=== PATIENT | female | born 1930 | race Caucasian/White ===

== ENCOUNTER 2017-08-12 08:32 | Inpatient (IN) | payer OTHER ==
--- NOTE | 2017-08-12 09:00 | PDOC ---
Attending Attestation - Resident Resident Name: Ernesto Massey - ED Attending Attestation I have performed the following: I have examined & evaluated the patient, The case was reviewed & discussed with the resident, I agree w/resident's findings & plan, Exceptions are as noted - HPI HPI: 08/12/17 08:58 86y F htn, hl, afib (on ) s/p fall at custodial, pt was going to the restroom when she fell. She does not remember the cirucumstances of the fall - but felt like her legs gave out. denies any cp, sob, palpitations, dizziness. Pt denies any head injury, loc, n/v viosion changes,. Pt dinbes any fever/chills , cough, dysuria, diarrhea, melena. Pt denies any numbness/tingling/weakness. ros may be limited due to dementia (no mention of dementia though) GENERAL: The patient is awake, alert, and oriented x 1, Nontoxic - in no acute distress. HEAD: Normocephalic, atraumatic. EYES: extraocular movements intact, sclera anicteric, conjunctiva clear. ENT: Normal voice, Moist mucous membranes. NECK: Normal range of motion, supple LUNGS: Breath sounds equal, clear to auscultation bilaterally. No wheezes, no rhonchi, no rales. HEART: Regular rate and rhythm, normal S1 and S2 without murmur, rub or gallop. ABDOMEN: Soft, nontender, normoactive bowel sounds. No guarding, no rebound. No CVA tenderness NEUROLOGICAL: No facial assymetry, Normal speech, SKIN: Warm, Dry, normal turgor, Back: No midline tenderness to the cervical, thoracic or lumbar spine Musculoskelatal: FROM of b/l shoulders, elbows, wrist. FROM of , knees, ankles - No signs of ecchymosis, erythema, or crepitus noted on palpation extremities, chest wall, clavicals, ribs, back. +pain to ROM of R hip but no shortening/ rotation, foot plantar flexion/extension intact, sensation in lower extremity intact. We'll obtain x-rays to rule out hip fracture Due to concern history we'll obtain blood work, EKG, UA to screen for anemia, metabolic derangements, occult infection for possible cause of the fall - Physicial Exam PE: 08/12/17 11:04 see above - Medical Decision Making 08/12/17 11:03 The patient's pelvic x-ray is consistent with a superior and inferior pubic rami fracture The patient will be admitted with orthopedic consult The patient declines any pain medication 08/12/17 11:[address] Grijalva requests CT Heart Score/ECG Review - ECG Impressions Comment:: 08/12/17 09:50 Twelve-lead EKG was performed and reviewed by me. Irregularly irregular Rate of 82 PVCs present
--- NOTE | 2017-08-12 09:02 | PDOC ---
History of Present Illness - General Chief Complaint: Injury Stated Complaint: FALL Time Seen by Provider: 08/12/17 08:36 - History of Present Illness Initial Comments: 08/12/17 09:05 The patient is an 86 year old female with a history of HTN, HLD, Afib on digoxen who presents for evaluation following a fall at her NH. The patient reports that she was walking to the bathroom when her legs "gave out on her" resulting in a fall. The patient denies any LOC, lightheadedness or head trauma with the event, but does endorse some mild right hip pain with movement, but notes no pain at rest. She denies any other injuries as well as fevers, chills, headache, nausea, vomiting, SOB, chest pain, abdominal pain, or changes with urination or bowel movements. Past History - Past Medical History Allergies/Adverse Reactions: Allergies Allergy/AdvReac Type Severity Reaction Status Date / Time No Known Allergies Allergy Verified 08/12/17 08:49 Home Medications: Ambulatory Orders Dabigatran Etexilate Mesylate [Pradaxa -] 75 mg PO BID 08/12/17 Digoxin [Lanoxin -] 0.25 mg PO DAILY 08/12/17 Escitalopram Oxalate [Lexapro -] 20 mg PO DAILY 08/12/17 Furosemide 20 mg PO ASDIR 08/12/17 Lactose-Reduced Food [Ensure Liquid] 237 ml PO DAILY 08/12/17 Levothyroxine Sodium [Levo-T] 125 mcg PO DAILY 08/12/17 Raloxifene HCl 60 mg PO DAILY 08/12/17 acetaZOLAMIDE [Diamox Sequels -] 500 mg PO DAILY 08/12/17 Cardiac Disorders: Yes (a fib) COPD: No HTN: Yes Psychiatric Problems: Yes (anxiety) Seizures: Yes (hypothyroid) Other medical history: glaucoma left eye. osteoporosis - Suicide/Smoking/Psychosocial Hx Smoking History: Unknown if ever smoked Have you smoked in the past 12 months: No Information on smoking cessation initiated: No Hx Alcohol Use: No Drug/Substance Use Hx: No Substance Use Type: None Review of Systems - Review of Systems Comments:: 08/12/17 09:08 Constitutional: No fevers, chills, fatigue, malaise HEENT: No Rhinorrhea, nasal congestion, visual changes Cardiovascular: No chest pain, syncope, palpitations, lightheadedness Respiratory: No Cough, SOB, Hemoptysis, Gastrointestinal: No Abdominal pain, Nausea, Vomiting, Constipation, Diarrhea, Melena Genitourinary: No Dysuria, Frequency, Urgency, Hesitancy, Hematuria, Flank pain Musculoskeletal: Right hip pain with movement. No Myalgia, arthralgia Skin: No rashes, itching, bruising, pallor Neurologic: No Headache, Dizziness, Numbness, Weakness, or Tingling Psychiatric: No Hallucinations. No SI or HI *Physical Exam - Vital Signs Last Vital Signs Temp Pulse Resp BP Pulse Ox 97.9 F 85 18 159/90 100 08/12/17 08:35 08/12/17 08:35 08/12/17 08:35 08/12/17 08:35 08/12/17 08:35 - Physical Exam Comments: 08/12/17 09:09 General Appearance: Nourished. No Apparent Distress HEENT: EOMI, SANDRA. No Pharyngeal Erythema, Tonsillar Exudate, Tonsillar Erythema Neck: No Cervical Lymphadenopathy Respiratory/Chest: Lungs Clear, Normal Breath Sounds. No Crackles, Rales, Rhonchi, Wheezing Cardiovascular: Regular Rhythm, Regular Rate. No Murmur, Gallops, Rubs Gastrointestinal/Abdominal: Normal Bowel Sounds, Soft. No Guarding, Rebound, Tenderness Musculoskeletal: No CVA Tenderness Extremity: Mild tenderness to palpation of the right hip and mild pain in the right hip with active motion. Sensation to light touch and temperature intact in the distal extremities. 2+ dp pulses bilaterally. Normal Capillary Refill Integumentary: Normal Color, Dry, Warm Neurologic: power marketer II-XII NML intact, Oriented x1, Alert, Normal Mood/Affect, Normal Response, Motor Strength 5/5. Normal Finger to Nose and Heel to [place] Heart Score/ECG Review #1 ECG reviewed & interpreted by me at: 11:48 (AFib with biphasic twaves in v4-v5) General ECG Interpretation: Normal Rate, Normal Intervals, No acute ischemic changes Compared to previous ECG there are: Previous ECG unavail ED Treatment Course - LABORATORY CBC & Chemistry Diagram: 08/12/17 09:18 08/12/17 09:18 - RADIOLOGY Radiology Studies Ordered: Category Date Time Status HEAD CT WITHOUT CONTRAST [CT] Stat CT Scan 08/12/17 08:50 Ordered HIP & PELVIS-RIGHT [RAD] Stat Radiology 08/12/17 08:50 Ordered Medical Decision Making - Medical Decision Making 08/12/17 09:12 The patient is an 86 year old female with a history of HTN, HLD, Afib on digoxen who presents for evaluation following a fall at her NH. Differential includes but is not limited to: Fracture, dislocation, contusion, infectious, metabolic derangement. Given the patient's history of a fall, we will obtain plain films of the patient's hip as well as a head CT, cbc, cmp, dig level, ekg to evaluate further. We will continue to monitor and reassess. 08/12/17 10:54 CBC demonstrates a wbc to 12. cmp, dig, are unremarkable. Head CT is negative for acute pathology as read by our radiologist. Plain films of the patient's hip demonstrate right inferior and superior pubic rami fractures as read by our radiologist. The patient will require admission and orthopedic consultation for further management of her condition. 08/12/17 11:23 We discussed the case with Dr. Grijalva with Orthopedic Surgery who has been made aware of the patient and will evaluate. 08/12/17 11:36 We discussed the case with the hospitalist team who accepted the patient for admission. *DC/Admit/Observation/Transfer Diagnosis at time of Disposition: Pubic ramus fracture Qualifiers: Encounter type: initial encounter Fracture type: closed Laterality: right Qualified Code(s): S32.591A - Other specified fracture of right pubis, initial encounter for closed fracture - Discharge Dispostion Condition at time of disposition: Stable Admit: Yes - Referrals - Patient Instructions - Post Discharge Activity
[2017-08-12 09:27] LABS: BASO % 0.6 % (0-2.0); EOS % 0.1 % (0-4.5); HEMATOCRIT 40.1 % (32.4-45.2); LYMPH % 3.3 % (8-40); MCH 28.4 pg (25.7-33.7); MCHC 32.5 g/dl (32.0-36.0); MEAN CELL VOLUME 87.5 fl (80-96); MEAN PLT VOLUME 8.5 fl (7.5-11.1); PLATELET COUNT 158 K/MM3 (134-434); RBC 4.58 M/mm3 (3.60-5.2); RDW 15.6 % (11.6-15.6)
[2017-08-12 09:54] LABS: URINE APPEARANCE CLEAR; URINE BILIRUBIN NEGATIVE (NEGATIVE); URINE BLOOD NEGATIVE (NEGATIVE); URINE COLOR YELLOW; URINE GLUCOSE (UA) NEGATIVE (NEGATIVE); URINE KETONE NEGATIVE (NEGATIVE); URINE LEUK ESTERASE NEGATIVE (NEGATIVE); URINE NITRITE NEGATIVE (NEGATIVE); URINE PROTEIN NEGATIVE (NEGATIVE); URINE UROBILINOGEN NEGATIVE mg/dL (0.2-1.0)
[2017-08-12 09:58] LABS: ALBUMIN 3.5 g/dl (3.4-5.0); ALK PHOS 83 U/L (45-117); ANION GAP 7 (8-16); BILIRUBIN,TOTAL 0.5 mg/dL (0.2-1.0); BLOOD UREA NITROGEN 18 mg/dL (7-18); CALCIUM 8.3 mg/dL (8.5-10.1); CHLORIDE 110 mmol/L (98-107); CO2 23 mmol/L (21-32); CREATININE 0.7 mg/dL (0.55-1.02); GLUCOSE,RANDOM 116 mg/dL (74-106); SGOT/AST 19 U/L (15-37); SGPT/ALT 14 U/L (12-78); SODIUM 140 mmol/L (136-145); TOT PROT 6.9 g/dl (6.4-8.2)
--- NOTE | 2017-08-12 11:49 | PN ---
Progress Note (short form) - Note Progress Note: Pt seen. Consult dictated. CT scan pending.
[2017-08-12] MEDS ORDERED: SODIUM CHLORIDE 1,000 ML IV SCH (12:00)
[2017-08-12] MEDS ORDERED: BACITRACIN 0.9 GM PACKET ONE (12:34)
--- NOTE | 2017-08-12 12:36 | HP ---
CHIEF COMPLAINT: fall PCP: HISTORY OF PRESENT ILLNESS: 86 year old female with a past medical history of HTN, HLD, Afib, hypothyroidism , depression presents to the hospital s/p fall 2 days ago at [facility] adult home. Patient states that she was doing daily housework when she lost her footing and fell. Patient denies loss of consciousness, heart palpitations, chest pain, headache, seizure hx, nausea, vomiting, and incontinence. She states that she hit the right side of her body, including her R shoulder and R hip. She states that after she fell, she was on the floor for 10 minutes before getting up and walking around on her own. She reports increased pain this morning and thus patient was brought to the hospital. She states the pain in her hip is at a 5/10 and patient states that she would like to avoid pain medications if possible. Phone number for cousin ([place] [phone]). ER course was notable for: (1) mild leukocytosis (WBC 12) (2) EKG Afib normal rate (3) Recent Travel: PAST MEDICAL HISTORY: HTN, HLD, hypothyroidism, depression, Afib PAST SURGICAL HISTORY: appendectomy (50 years ago), tonsillectomy, cataract surgery Social History: Smoking: never Alcohol: never Drugs: never Family History: CAD in mother Allergies No Known Allergies Allergy (Verified 08/12/17 08:49) HOME MEDICATIONS: Home Medications Medication Instructions Recorded Dabigatran Etexilate Mesylate 75 mg PO BID 08/12/17 [Pradaxa -] Digoxin [Lanoxin -] 0.25 mg PO DAILY 08/12/17 Escitalopram Oxalate [Lexapro -] 20 mg PO DAILY 08/12/17 Furosemide 20 mg PO ASDIR 08/12/17 Lactose-Reduced Food [Ensure 237 ml PO DAILY 08/12/17 Liquid] Levothyroxine Sodium [Levo-T] 125 mcg PO DAILY 08/12/17 Metoprolol Succinate 25 mg PO DAILY 08/12/17 Raloxifene HCl 60 mg PO DAILY 08/12/17 Ramipril 5 mg PO DAILY 08/12/17 acetaZOLAMIDE [Diamox Sequels -] 500 mg PO DAILY 08/12/17 acetaZOLAMIDE [Diamox Sequels -] 500 mg PO DAILY 08/12/17 REVIEW OF SYSTEMS CONSTITUTIONAL: Absent: fever, chills, diaphoresis, generalized weakness, malaise, loss of appetite, weight change HEENT: Absent: rhinorrhea, nasal congestion, throat pain, throat swelling, difficulty swallowing, mouth swelling, ear pain, eye pain, visual changes CARDIOVASCULAR: Absent: chest pain, syncope, palpitations, irregular heart rate, lightheadedness , peripheral edema RESPIRATORY: Absent: cough, shortness of breath, dyspnea with exertion, orthopnea, wheezing, stridor, hemoptysis GASTROINTESTINAL: Absent: abdominal pain, abdominal distension, nausea, vomiting, diarrhea, constipation, melena, hematochezia GENITOURINARY: Absent: dysuria, frequency, urgency, hesitancy, hematuria, flank pain, genital pain MUSCULOSKELETAL: Absent: myalgia, arthralgia, joint swelling, back pain, neck pain SKIN: Absent: rash, itching, pallor HEMATOLOGIC/IMMUNOLOGIC: Absent: easy bleeding, easy bruising, lymphadenopathy, frequent infections ENDOCRINE: Absent: unexplained weight gain, unexplained weight loss, heat intolerance, cold intolerance NEUROLOGIC: Absent: headache, focal weakness or paresthesias, dizziness, unsteady gait, seizure, mental status changes, bladder or bowel incontinence PSYCHIATRIC: Absent: anxiety, depression, suicidal or homicidal ideation, hallucinations. PHYSICAL EXAMINATION Vital Signs - 24 hr 08/12/17 08/12/17 08:35 11:32 Temperature 97.9 F 97.9 F Pulse Rate 85 Pulse Rate [ 83 Right Radial] Respiratory 18 16 Rate Blood Pressure 159/90 Blood Pressure 144/92 [Left Arm] O2 Sat by Pulse 100 99 Oximetry (%) GENERAL: Awake, alert, and fully oriented, in no acute distress. HEAD: Normal with no signs of trauma. EYES: Pupils equal, round and reactive to light, extraocular movements intact, sclera anicteric, conjunctiva clear. No lid lag. EARS, NOSE, THROAT: Ears normal, nares patent, oropharynx clear without exudates. Moist mucous membranes. NECK: Normal range of motion, supple without lymphadenopathy, JVD, or masses. LUNGS: Breath sounds equal, clear to auscultation bilaterally. No wheezes, and no crackles. No accessory muscle use. HEART: Regular rate and rhythm, normal S1 and S2 without murmur, rub or gallop. ABDOMEN: Soft, nontender, not distended, normoactive bowel sounds, no guarding, no rebound, no masses. No hepatomegaly or splenomegaly. MUSCULOSKELETAL: Normal range of motion at all joints. No bony deformities or tenderness. No CVA tenderness. UPPER EXTREMITIES: 2+ pulses, warm, well-perfused. No cyanosis. No clubbing. No peripheral edema. LOWER EXTREMITIES: 2+ pulses, warm, well-perfused. No calf tenderness. No peripheral edema. NEUROLOGICAL: Cranial nerves II-XII intact. Normal speech. Normal gait. PSYCHIATRIC: Cooperative. Good eye contact. Appropriate mood and affect. SKIN: Warm, dry, normal turgor, no rashes or lesions noted, normal capillary refill. Laboratory Results - last 24 hr 08/12/17 08/12/17 08/12/17 09:18 09:18 09:18 WBC 12.0 H RBC 4.58 Hgb 13.0 Hct 40.1 MCV 87.5 MCH 28.4 MCHC 32.5 RDW 15.6 Plt Count 158 MPV 8.5 Neutrophils % 88.0 H Lymphocytes % 3.3 L Monocytes % 8.0 Eosinophils % 0.1 Basophils % 0.6 Sodium 140 Potassium 4.0 Chloride 110 H Carbon Dioxide 23 Anion Gap 7 L BUN 18 Creatinine 0.7 Creat Clearance w eGFR > 60 Random Glucose 116 H Calcium 8.3 L Total Bilirubin 0.5 AST 19 ALT 14 Alkaline Phosphatase 83 Creatine Kinase 61 Troponin I < 0.02 Total Protein 6.9 Albumin 3.5 Urine Color Urine Appearance Urine pH Ur Specific [place] Urine Protein Urine Glucose (UA) Urine Ketones Urine Blood Urine Nitrite Urine Bilirubin Urine Urobilinogen Ur Leukocyte Esterase Digoxin 1.2937 08/12/17 08/12/17 09:33 10:12 WBC RBC Hgb Hct MCV MCH MCHC RDW Plt Count MPV Neutrophils % Lymphocytes % Monocytes % Eosinophils % Basophils % Sodium Potassium Chloride Carbon Dioxide Anion Gap BUN Creatinine Creat Clearance w eGFR Random Glucose Calcium Total Bilirubin AST ALT Alkaline Phosphatase Creatine Kinase Cancelled Troponin I Cancelled Total Protein Albumin Urine Color Yellow Urine Appearance Clear Urine pH 7.0 Ur Specific [place] 1.015 Urine Protein Negative Urine Glucose (UA) Negative Urine Ketones Negative Urine Blood Negative Urine Nitrite Negative Urine Bilirubin Negative Urine Urobilinogen Negative Ur Leukocyte Esterase Negative Digoxin Ambulatory Orders Dabigatran Etexilate Mesylate [Pradaxa -] 75 mg PO BID 08/12/17 Digoxin [Lanoxin -] 0.25 mg PO DAILY 08/12/17 Escitalopram Oxalate [Lexapro -] 20 mg PO DAILY 08/12/17 Furosemide 20 mg PO ASDIR 08/12/17 Lactose-Reduced Food [Ensure Liquid] 237 ml PO DAILY 08/12/17 Levothyroxine Sodium [Levo-T] 125 mcg PO DAILY 08/12/17 Metoprolol Succinate 25 mg PO DAILY 08/12/17 Raloxifene HCl 60 mg PO DAILY 08/12/17 Ramipril 5 mg PO DAILY 08/12/17 acetaZOLAMIDE [Diamox Sequels -] 500 mg PO DAILY 08/12/17 acetaZOLAMIDE [Diamox Sequels -] 500 mg PO DAILY 08/12/17 ASSESSMENT/PLAN: 86 year old female with a past medical history of HTN, HLD, Afib, hypothyroidism , depression admitted to the hospital s/p fall and acute R sided pubic ramus fracture #Pubic Ramus Fracture: pain is controlled -f/u pelvic CT read -unlikely surgery will be done -Dr. Grijalva consult appreciated -pain control, tylenol PRN #Hypertension: control htn -continue home ramipril 5mg PO daily -continue metoprolol 25mg PO QD -continue home lasix 20mg PO #Hypothyroidism: not acute -continue levothyroxine 125mcg PO QD #Atrial Fibrillation: rate controlled -CBC to trend H&H -Restart pradaxa -continue digoxin 0.25 QD #Depression: stable -continue raloxifine #FEN -Sodium controlled diet -replete lytes in AM -1 bag of NS @ 83cc/hr #Prophylaxis SCDs for now, will start pradaxa if H&H stable #Disposition -Admit to med-surg Visit type - Emergency Visit Emergency Visit: Yes ED Registration Date: 08/12/17 Care time: The patient presented to the Emergency Department on the above date and was hospitalized for further evaluation of their emergent condition. - New Patient This patient is new to me today: Yes Date on this admission: 08/12/17 - Critical Care Critical Care patient: No Hospitalist Screening - Colonoscopy Questionnaire Colonoscopy Questionnaire: Colonoscopy Questionnaire - Patient: 50 - 75 years old and never had a screening colonoscopy: Unknown History of colon or rectal polyps, or CA: Unknown History of IBD, Crohn's disease or UC: Unknown History of abdominal radiation therapy as a child: Unknown - Relative: 1 with colon or rectal CA, or polyps at age 60 or younger: Unknown Colon or rectal CA diagnosed at age 45 or younger: Unknown Multiple relatives with colon or rectal CA: Unknown - Outcome: Screening Result: Negative Screen
--- NOTE | 2017-08-12 12:54 | HP ---
CHIEF COMPLAINT: hip pain HISTORY OF PRESENT ILLNESS: The pt is a 86 year old female with a PMH of hypertension, hypothyroidism, A.Fib., HLD, Afib who presents for evaluation following a fall at [facility]( adult home). The patient reports that she was doing errands 2 days ago and she fell on the ground. She was able to get up after 10 minutes. The patient denies any LOC, lightheadedness or head trauma, LOC, seizure, urination, but does endorse some mild right hip pain with movement, but notes no pain at rest. She denies fevers, chills, headache, nausea, vomiting, SOB, chest pain, abdominal pain, or changes with urination or bowel movements. ER course was notable for: (1)x ray of left hip (2)CBC, leukocytosis (3)Orthopedic surgery PAST MEDICAL HISTORY: as above PAST SURGICAL HISTORY: cataract surgery, appendectomy, tonsillectomy Social History: Smoking:no Alcohol:no Drugs: no Family History: DM in mothers side, no cancer history Allergies No Known Allergies Allergy (Verified 08/12/17 08:49) HOME MEDICATIONS: Home Medications Medication Instructions Recorded Dabigatran Etexilate Mesylate 75 mg PO BID 08/12/17 [Pradaxa -] Digoxin [Lanoxin -] 0.25 mg PO DAILY 08/12/17 Escitalopram Oxalate [Lexapro -] 20 mg PO DAILY 08/12/17 Furosemide 20 mg PO ASDIR 08/12/17 Lactose-Reduced Food [Ensure 237 ml PO DAILY 08/12/17 Liquid] Levothyroxine Sodium [Levo-T] 125 mcg PO DAILY 08/12/17 Metoprolol Succinate 25 mg PO DAILY 08/12/17 Raloxifene HCl 60 mg PO DAILY 08/12/17 Ramipril 5 mg PO DAILY 08/12/17 acetaZOLAMIDE [Diamox Sequels -] 500 mg PO DAILY 08/12/17 acetaZOLAMIDE [Diamox Sequels -] 500 mg PO DAILY 08/12/17 REVIEW OF SYSTEMS CONSTITUTIONAL: Absent: fever, chills, diaphoresis, generalized weakness, malaise, loss of appetite HEENT: Absent: rhinorrhea, nasal congestion, throat pain, throat swelling CARDIOVASCULAR: Absent: chest pain, syncope, palpitations, irregular heart rate, lightheadedness , peripheral edema RESPIRATORY: Absent: cough, shortness of breath, dyspnea with exertion, orthopnea, wheezing, GASTROINTESTINAL: Absent: abdominal pain, abdominal distension, nausea, vomiting, diarrhea, constipation, GENITOURINARY: Absent: dysuria, frequency, urgency, hesitancy, hematuria, flank pain, genital pain MUSCULOSKELETAL: right hip pain Absent: joint swelling, back pain, neck pain SKIN: Absent: rash, itching, pallor ENDOCRINE: Absent: unexplained weight gain, unexplained weight loss, heat intolerance NEUROLOGIC: Absent: headache, focal weakness or paresthesias, dizziness, unsteady gait, seizure, PSYCHIATRIC: Absent: anxiety, depression PHYSICAL EXAMINATION Vital Signs - 24 hr 08/12/17 08/12/17 08:35 11:32 Temperature 97.9 F 97.9 F Pulse Rate 85 Pulse Rate [ 83 Right Radial] Respiratory 18 16 Rate Blood Pressure 159/90 Blood Pressure 144/92 [Left Arm] O2 Sat by Pulse 100 99 Oximetry (%) GENERAL: Awake, alert, and fully oriented, in no acute distress, lying in bed. HEAD: Normal with no signs of trauma. EYES: Pupils equal, round and reactive to light, extraocular movements intact, sclera anicteric, conjunctiva clear. EARS, NOSE, THROAT: oropharynx clear without exudates. Moist mucous membranes. NECK: Normal range of motion, supple without lymphadenopathy, JVD, or masses. LUNGS: Breath sounds equal, clear to auscultation bilaterally. No wheezes, and no crackles. No accessory muscle use. HEART: Regular rate and rhythm, normal S1 and S2 without murmur, rub or gallop. ABDOMEN: Soft, nontender, not distended, normoactive bowel sounds, no guarding, no rebound, no masses. MUSCULOSKELETAL: limited hip flexion in right hip due to pain, tenderness over right hip, normal ROM in all other joints. No bone deformities. UPPER EXTREMITIES: 2+ pulses, no clubbing. No peripheral edema. LOWER EXTREMITIES: 2+ pulses, no calf tenderness. No peripheral edema. NEUROLOGICAL: Normal speech, no facial asymmetry, motor 5/5, sensation decreased in right lower leg. PSYCHIATRIC: Cooperative. Good eye contact. Appropriate mood and affect. SKIN: Warm, dry, normal turgor, no rashes or lesions noted. Laboratory Results - last 24 hr 08/12/17 08/12/17 08/12/17 09:18 09:18 09:18 WBC 12.0 H RBC 4.58 Hgb 13.0 Hct 40.1 MCV 87.5 MCH 28.4 MCHC 32.5 RDW 15.6 Plt Count 158 MPV 8.5 Neutrophils % 88.0 H Lymphocytes % 3.3 L Monocytes % 8.0 Eosinophils % 0.1 Basophils % 0.6 Sodium 140 Potassium 4.0 Chloride 110 H Carbon Dioxide 23 Anion Gap 7 L BUN 18 Creatinine 0.7 Creat Clearance w eGFR > 60 Random Glucose 116 H Calcium 8.3 L Total Bilirubin 0.5 AST 19 ALT 14 Alkaline Phosphatase 83 Creatine Kinase 61 Troponin I < 0.02 Total Protein 6.9 Albumin 3.5 Urine Color Urine Appearance Urine pH Ur Specific [place] Urine Protein Urine Glucose (UA) Urine Ketones Urine Blood Urine Nitrite Urine Bilirubin Urine Urobilinogen Ur Leukocyte Esterase Digoxin 1.2937 08/12/17 08/12/17 09:33 10:12 WBC RBC Hgb Hct MCV MCH MCHC RDW Plt Count MPV Neutrophils % Lymphocytes % Monocytes % Eosinophils % Basophils % Sodium Potassium Chloride Carbon Dioxide Anion Gap BUN Creatinine Creat Clearance w eGFR Random Glucose Calcium Total Bilirubin AST ALT Alkaline Phosphatase Creatine Kinase Cancelled Troponin I Cancelled Total Protein Albumin Urine Color Yellow Urine Appearance Clear Urine pH 7.0 Ur Specific [place] 1.015 Urine Protein Negative Urine Glucose (UA) Negative Urine Ketones Negative Urine Blood Negative Urine Nitrite Negative Urine Bilirubin Negative Urine Urobilinogen Negative Ur Leukocyte Esterase Negative Digoxin ASSESSMENT/PLAN: The pt is a 86 year old female with a PMH of hypertension, hypothyroidism, A.Fib., HLD, Afib who presents for evaluation following a fall at [facility], she is aditted s/p fall. S/p fall: -x ray reviewed- pubic ramus fracture, followed by CT hip -Orthopedic surgery consulted, f/u recommendations: toe weight bearing, no surgery indicated -fall risk precautions -pain control, Tylenol Hypertension: -cont home meds: Metoprolol, Ramipril, lasix Hypothyroidism: -cont Synthroid, ordered TSH A.Fib: -cont pradaxa DVT PPX: -cont AC -scds F/E/N: NS/no changes/sodium controlled Dispo: med surg Full note to follow. Problem List - Problem (1) Hypertension Code(s): I10 - ESSENTIAL (PRIMARY) HYPERTENSION (2) Hypertension Code(s): I10 - ESSENTIAL (PRIMARY) HYPERTENSION (3) Pubic ramus fracture Code(s): S32.599A - OTH FRACTURE OF UNSP PUBIS, INIT ENCNTR FOR CLOSED FRACTURE Qualifiers: Encounter type: initial encounter Fracture type: closed Laterality: right Qualified Code(s): S32.591A - Other specified fracture of right pubis, initial encounter for closed fracture Visit type - Emergency Visit Emergency Visit: Yes ED Registration Date: 08/12/17 Care time: The patient presented to the Emergency Department on the above date and was hospitalized for further evaluation of their emergent condition. - New Patient This patient is new to me today: Yes Date on this admission: 08/12/17 - Critical Care Critical Care patient: No
[2017-08-12 12:59] VITALS: BMI 17.9
[2017-08-12] MEDS ORDERED: LACTOSE REDUCED FOOD PO SCH (13:15)
--- NOTE | 2017-08-12 14:19 | EKG ---
Test Reason : Blood Pressure : / mmHG Vent. Rate : 082 BPM Atrial Rate : 087 BPM P-R Int : 000 ms QRS Dur : 076 ms QT Int : 356 ms P-R-T Axes : 000 081 -80 degrees QTc Int : 415 ms POOR DATA QUALITY, INTERPRETATION MAY BE ADVERSELY AFFECTED ATRIAL FIBRILLATION WITH A COMPETING JUNCTIONAL PACEMAKER WITH PREMATURE VENTRICULAR OR ABERRANTLY CONDUCTED COMPLEXES MODERATE VOLTAGE CRITERIA FOR LVH, MAY BE NORMAL VARIANT CANNOT RULE OUT SEPTAL INFARCT , AGE UNDETERMINED ABNORMAL ECG NO PREVIOUS ECGS AVAILABLE Confirmed by MD DL, CHANDAN ([id number]) on 08/12/2017 2:19:14 PM Referred By: Confirmed By:CHANDAN LIZAMA MD
[2017-08-12] MEDS ORDERED: PT OWN MED DRAWER 7, Y5N ONE ×2 (14:39→20:45)
[2017-08-12] MEDS: RAMIPRIL 5 MG CAPSULE (FP) PO SCH (14:43)
[2017-08-12] MEDS: DIGOXIN 0.25 MG TABLET (FP) PO SCH (14:44)
[2017-08-12] MEDS: LEVOTHYROXINE NA 125 MCG TABLET (FP) PO SCH (14:45)
[2017-08-12] MEDS: ESCITALOPRAM OXALATE 20 MG TABLET (FP) PO SCH (14:45)
[2017-08-12] MEDS: DABIGATRAN ETEXILATE MESYLATE 75 MG CAPSULE PO SCH ×2 (14:45→21:18)
--- NOTE | 2017-08-12 14:53 | CONS ---
DATE OF CONSULTATION: 08/12/2017 CHIEF COMPLAINT: Right hip pain. HISTORY OF PRESENT ILLNESS: This is a pleasant 86-year-old female who is a resident of a snf who was coming to the restroom and suffered a fall. She states that her body started to spin, and she fell down, and her legs gave out. She denies any head injury, loss of consciousness. She notes pain only in the hip area when she moves. She denies any pain sitting still. Pain is felt in the right hip area. There is no pain elsewhere. PAST MEDICAL HISTORY: Includes hypertension, hyperlipidemia, atrial fibrillation, likely history of dementia. MEDICATIONS: Reviewed and in the chart. REVIEW OF SYMPTOMS: No fevers, chills, nausea, vomiting, night sweats. PHYSICAL EXAMINATION: General: This is an elderly female in no acute distress. She is alert and answering questions appropriately. She is somewhat disoriented, though. Lungs: She has regular respirations. Extremities: Examination of the pelvis and right lower extremity demonstrates no skin lesions. There is no swelling. There is no gross deformity. There is tenderness with both AP and lateral compression of the pelvis. There is pain with logroll of the femur. The knee is nontender. The ankle is nontender. The calves are soft and nontender. Distally, sensation is intact to light touch. Have 2+ DP pulse. Intact EHL, FHL, tibialis anterior, gastric, and soleus. Radiographs of the pelvis and right hip are reviewed. There is a displaced superior and inferior pubic ramus fracture. There is a fracture line extending into the joint, which will be best evaluated by CT. ASSESSMENT: Right superior, inferior pubic ramus fracture. PLAN: I reviewed his findings with the patient as well as the emergency room staff. At this point, I believe nonoperative care is best. In order to ensure no major intra-articular involvement, we will obtain CT scan of the pelvis. In the meantime, she can toe touch weight bear on the right lower extremity with a walker. She should start physical therapy. We will follow up CBCs for the next 1-2 days to ensure a stable hematocrit as some drop is expected. We will obtain follow up radiographs in [address] scan assuming that nonoperative care is proceeded with. MEGHANA SAUCEDO M.D. [id number]
--- NOTE | 2017-08-12 15:07 | PN ---
Progress Note (short form) - Note Progress Note: CT scan reviewed. Impacted sacral fracture seen as well. No joint involvement. Start toe touch weight bearing. Follow up serial HCT.
--- NOTE | 2017-08-12 18:04 | PN ---
Teaching Attending Note Name of Resident: Pedro Melendez ATTENDING PHYSICIAN STATEMENT I saw and evaluated the patient. I reviewed the resident's note and discussed the case with the resident. I agree with the resident's findings and plan as documented. SUBJECTIVE: Patient denies any pain, comfortably lying in bed with no acute distress. Upset that she fell. OBJECTIVE: Vital Signs Temperature 98.4 F 08/12/17 14:57 Pulse Rate 82 08/12/17 14:57 Respiratory Rate 16 08/12/17 14:57 Blood Pressure 128/79 08/12/17 14:57 O2 Sat by Pulse Oximetry (%) 97 08/12/17 12:20 CBCD WBC 12.0 K/mm3 (4.0-10.0) H 08/12/17 09:18 RBC 4.58 M/mm3 (3.60-5.2) 08/12/17 09:18 Hgb 13.0 GM/dL (10.7-15.3) 08/12/17 09:18 Hct 40.1 % (32.4-45.2) 08/12/17 09:18 MCV 87.5 fl (80-96) 08/12/17 09:18 MCHC 32.5 g/dl (32.0-36.0) 08/12/17 09:18 RDW 15.6 % (11.6-15.6) 08/12/17 09:18 Plt Count 158 K/MM3 (134-434) 08/12/17 09:18 MPV 8.5 fl (7.5-11.1) 08/12/17 09:18 CMP Sodium 140 mmol/L (136-145) 08/12/17 09:18 Potassium 4.0 mmol/L (3.5-5.1) 08/12/17 09:18 Chloride 110 mmol/L (98-107) H 08/12/17 09:18 Carbon Dioxide 23 mmol/L (21-32) 08/12/17 09:18 Anion Gap 7 (8-16) L 08/12/17 09:18 BUN 18 mg/dL (7-18) 08/12/17 09:18 Creatinine 0.7 mg/dL (0.55-1.02) 08/12/17 09:18 Creat Clearance w eGFR > 60 (>60) 08/12/17 09:18 Random Glucose 116 mg/dL (74-106) H 08/12/17 09:18 Calcium 8.3 mg/dL (8.5-10.1) L 08/12/17 09:18 Total Bilirubin 0.5 mg/dL (0.2-1.0) 08/12/17 09:18 AST 19 U/L (15-37) 08/12/17 09:18 ALT 14 U/L (12-78) 08/12/17 09:18 Alkaline Phosphatase 83 U/L (45-117) 08/12/17 09:18 Total Protein 6.9 g/dl (6.4-8.2) 08/12/17 09:18 Albumin 3.5 g/dl (3.4-5.0) 08/12/17 09:18 CARDIAC ENZYMES Creatine Kinase Cancelled 08/12/17 10:12 Troponin I Cancelled 08/12/17 10:12 Current Medications Generic Name Dose Route Start Last Admin Trade Name Freq PRN Reason Stop Dose Admin Acetazolamide 500 mg 08/12/17 13:15 08/12/17 14:43 Diamox Sequels - PO 500 mg DAILY KENNY Administration Brimonidine Tartrate 1 drop 08/13/17 10:00 Alphagan 0.2% - OU BID KENNY Dabigatran 75 mg 08/12/17 13:15 08/12/17 14:45 Pradaxa - PO 75 mg BID KENNY Administration Digoxin 0.25 mg 08/12/17 13:15 08/12/17 14:44 Lanoxin - PO 0.25 mg DAILY KENNY Administration Escitalopram Oxalate 20 mg 08/12/17 13:15 08/12/17 14:45 Lexapro - PO 20 mg DAILY KENNY Administration Furosemide 20 mg 08/13/17 10:00 Lasix - PO MoFr@1000 KENNY Sodium Chloride 1,000 mls @ 83 mls/hr 08/12/17 12:00 08/12/17 12:20 Normal Saline - IV 08/13/17 01:59 83 mls/hr ASDIR [facility], [facility]1983 Administration Latanoprost 1 drop 08/12/17 22:00 Xalatan 0.005% Eye Drops - OU HS [facility], [facility]1983 Levothyroxine Sodium 125 mcg 08/12/17 13:15 08/12/17 14:45 Synthroid - PO 125 mcg DAILY@0700 [facility], [facility]1983 Administration Metoprolol Succinate 25 mg 08/13/17 10:00 Toprol Xl - PO DAILY [facility], [facility]1983 Non-Formulary Medication 60 mg 08/13/17 10:00 Raloxifene Hcl [Raloxifene Hcl] PO DAILY [facility] Non-Formulary Medication 1 drop 08/13/17 10:00 Cyclosporine [Restasis] OU BID [facility] Ramipril 5 mg 08/12/17 13:15 08/12/17 14:43 Altace - PO 5 mg DAILY [facility] Administration Home Medications Medication Instructions Recorded Brimonidine Tartrate [Alphagan 1 drop OU Q12H 08/12/17 0.2% -] Cyclosporine [Restasis] 1 drop OU BID 08/12/17 Dabigatran Etexilate Mesylate 75 mg PO BID 08/12/17 [Pradaxa -] Digoxin [Lanoxin -] 0.25 mg PO DAILY 08/12/17 Escitalopram Oxalate [Lexapro -] 20 mg PO DAILY 08/12/17 Furosemide 20 mg PO MOFR 08/12/17 Lactose-Reduced Food [Ensure 237 ml PO DAILY 08/12/17 Liquid] Levothyroxine Sodium [Levo-T] 125 mcg PO DAILY 08/12/17 Metoprolol Succinate 25 mg PO DAILY 08/12/17 Raloxifene HCl 60 mg PO DAILY 08/12/17 Ramipril 5 mg PO DAILY 08/12/17 Travoprost [Travatan Z] 1 drop OU HS 08/12/17 acetaZOLAMIDE [Diamox Sequels -] 500 mg PO DAILY 08/12/17 PE: Chest: CTABL, no wheeze, no rales HEENT: EOMI, MMM, no exudate, no erythema CVS: S1S2 positive, RRR abdomen: Soft, NT, NR, positive BS Ext: Pulses are positive, ASSESSMENT AND PLAN: 86 year old female with a past medical history of HTN, HLD, Afib, hypothyroidism , depression admitted to the hospital s/p fall and acute R sided pubic ramus fracture #Impacted sacral Fracture: pain control , Ortho consult Dr. Grijalva appreciated, tylenol PRN, as per Ortho, start toe touch weight bearing. #Hypertension: consult ramipril , metoprolol , lasix 20mg PO #Hypothyroidism: continue levothyroxine 125mcg PO QD #Atrial Fibrillation: rate controlled, Restart pradaxa, digoxin 0.25 QD, will recheck H/H before continuing Pradaxa. #Depression: stable continue raloxifine DVT Px: SCDs for now, pradaxa if H&H stable Diet: regular
[2017-08-12 19:14] LABS: HEMATOCRIT 36.2 % (32.4-45.2); HEMOGLOBIN 12.1 GM/dL (10.7-15.3); MCH 28.9 pg (25.7-33.7); MCHC 33.5 g/dl (32.0-36.0); MEAN CELL VOLUME 86.4 fl (80-96); MEAN PLT VOLUME 8.1 fl (7.5-11.1); PLATELET COUNT 141 K/MM3 (134-434); RBC 4.19 M/mm3 (3.60-5.2); RDW 15.2 % (11.6-15.6); WHITE BLOOD COUNT 10.8 K/mm3 (4.0-10.0)
[2017-08-12] MEDS: LATANOPROST 0.005% OPHTH SOLN 2.5ML BOTTLE OU SCH (21:18)
[2017-08-13] MEDS: LEVOTHYROXINE NA 125 MCG TABLET (FP) PO SCH (06:00)
[2017-08-13 07:26] LABS: HEMATOCRIT 37.3 % (32.4-45.2); HEMOGLOBIN 12.5 GM/dL (10.7-15.3); MCH 29.1 pg (25.7-33.7); MCHC 33.5 g/dl (32.0-36.0); MEAN CELL VOLUME 86.9 fl (80-96); MEAN PLT VOLUME 8.9 fl (7.5-11.1); PLATELET COUNT 146 K/MM3 (134-434); RBC 4.29 M/mm3 (3.60-5.2); RDW 15.4 % (11.6-15.6); WHITE BLOOD COUNT 9.9 K/mm3 (4.0-10.0)
[2017-08-13 07:48] LABS: CHLORIDE 109 mmol/L (98-107); POTASSIUM 3.5 mmol/L (3.5-5.1); SODIUM 139 mmol/L (136-145)
[2017-08-13 08:06] LABS: ANION GAP 9 (8-16); BLOOD UREA NITROGEN 17 mg/dL (7-18); CALCIUM 7.7 mg/dL (8.5-10.1); CO2 21 mmol/L (21-32); CREATININE 0.5 mg/dL (0.55-1.02); GLUCOSE,RANDOM 82 mg/dL (74-106)
[2017-08-13] MEDS ORDERED: POTASSIUM CHLORIDE TABS 20 MEQ TABLET.ER (FP) PO ONE (09:00)
[2017-08-13] MEDS ORDERED: PATIENT'S OWN MEDICATION (NON-FORMULARY) (Cyclosporine [Restasis] 1 DROP) OU SCH (10:00)
[2017-08-13] MEDS ORDERED: FUROSEMIDE 20 MG TABLET (FP) PO SCH (10:00)
[2017-08-13] MEDS ORDERED: PATIENT'S OWN MEDICATION (NON-FORMULARY) (Raloxifene Hcl [Raloxifene Hcl] 60 MG) PO SCH (10:00)
[2017-08-13] MEDS: metoPROLOL SUCCINATE 25 MG TAB.SR.24H (FP) PO SCH (11:19)
[2017-08-13] MEDS: ACETAMINOPHEN 325 MG TABLET (FP) PO PRN (11:19)
[2017-08-13] MEDS: RAMIPRIL 5 MG CAPSULE (FP) PO SCH (11:20)
[2017-08-13] MEDS: DABIGATRAN ETEXILATE MESYLATE 75 MG CAPSULE PO SCH ×2 (11:21→21:23)
[2017-08-13] MEDS: ESCITALOPRAM OXALATE 20 MG TABLET (FP) PO SCH (11:22)
[2017-08-13] MEDS: DIGOXIN 0.25 MG TABLET (FP) PO SCH (11:22)
[2017-08-13] MEDS ORDERED: PT OWN MED DRAWER 7, Y5N ONE ×3 (11:32→19:50)
[2017-08-13] MEDS ORDERED: ARTIFICIAL TEARS (POLYVINYL ALCOHOL 1.4%) OPTH DROPS OU PRN (11:41)
[2017-08-13] MEDS: BRIMONIDINE TARTRATE 0.2% OPHTHALMIC 5 ML BOTTLE OU SCH ×2 (14:44→21:24)
--- NOTE | 2017-08-13 14:44 | PN ---
<Pedro Melendez - Last Filed: 08/13/17 14:44> Physical Exam: SUBJECTIVE: No acute overnight events. Minimal pain. Denies chest pain, SOB, nausea, vomiting, diarrhea, fevers, chills. OBJECTIVE: Vital Signs Period Temp Pulse Resp BP Sys/Anderson Pulse Ox Last 24 Hr 97.8 F-98.4 F 72-86 16-20 128-146/75-91 100 GEN: A&Ox2, no acute distress Cards: RR, irregular rhythm, no murmurs Pulm: CTA Abd: Soft, nontender, BS present Extremities: mild tenderness to palpation on the R femoral head region. RLE restricted in ROM due to pain. Laboratory Results - last 24 hr 08/12/17 08/13/17 08/13/17 19:10 06:15 06:15 WBC 10.8 H 9.9 RBC 4.19 4.29 Hgb 12.1 12.5 Hct 36.2 37.3 MCV 86.4 86.9 MCH 28.9 29.1 MCHC 33.5 33.5 RDW 15.2 15.4 Plt Count 141 146 MPV 8.1 8.9 Sodium 139 Potassium 3.5 Chloride 109 H Carbon Dioxide 21 Anion Gap 9 BUN 17 Creatinine 0.5 L Random Glucose 82 Calcium 7.7 L TSH 0.71 Blood Type Antibody Screen 08/13/17 08/13/17 06:15 08:44 WBC RBC Hgb Hct MCV MCH MCHC RDW Plt Count MPV Sodium Potassium Chloride Carbon Dioxide Anion Gap BUN Creatinine Random Glucose Calcium TSH Blood Type B POSITIVE B POSITIVE Antibody Screen Negative Active Medications Generic Name Dose Route Start Last Admin Trade Name Medhat PRN Reason Stop Dose Admin Acetaminophen 650 mg 08/13/17 11:01 08/13/17 11:19 Tylenol - PO 650 mg Q6H PRN Administration PAIN Acetazolamide 500 mg 08/12/17 13:15 08/13/17 11:20 Diamox Sequels - PO 500 mg DAILY KENNY Administration Artificial Tears 1 drop 08/13/17 11:41 Artificial Tears OU TID PRN DRY EYES Brimonidine Tartrate 1 drop 08/13/17 10:00 Alphagan 0.2% - OU BID KENNY Dabigatran 75 mg 08/12/17 13:15 08/13/17 11:21 Pradaxa - PO 75 mg BID KENNY Administration Digoxin 0.25 mg 08/12/17 13:15 08/13/17 11:22 Lanoxin - PO 0.25 mg DAILY KENNY Administration Escitalopram Oxalate 20 mg 08/12/17 13:15 08/13/17 11:22 Lexapro - PO 20 mg DAILY KENNY Administration Furosemide 20 mg 08/13/17 10:00 08/13/17 11:19 Lasix - PO 20 mg MoFr@1000 KENNY Administration Latanoprost 1 drop 08/12/17 22:00 08/12/17 21:18 Xalatan 0.005% Eye Drops - OU 1 drop HS KENNY Administration Levothyroxine Sodium 125 mcg 08/12/17 13:15 08/13/17 06:00 Synthroid - PO 125 mcg DAILY@0700 KENNY Administration Metoprolol Succinate 25 mg 08/13/17 10:00 08/13/17 11:19 Toprol Xl - PO 25 mg DAILY KENNY Administration Ramipril 5 mg 08/12/17 13:15 08/13/17 11:20 Altace - PO 5 mg DAILY KENNY Administration ASSESSMENT/PLAN: 86 year old female with a past medical history of HTN, HLD, Afib, hypothyroidism , depression admitted to the hospital s/p fall and acute R sided pubic ramus fracture #Pubic Ramus Fracture: pain is controlled -Patient will not have surgery -Dr. Grijalva consult appreciated -pain control, tylenol 650 PRN -will need to go to rehab #Hypertension: controlled -continue home ramipril 5mg PO daily -continue metoprolol 25mg PO QD -continue home lasix 20mg PO #Hypothyroidism: not acute -continue levothyroxine 125mcg PO QD #Atrial Fibrillation: rate controlled -CBC to trend H&H -continue pradaxa -continue digoxin 0.25 QD #Depression: stable -continue raloxifine #FEN -Sodium controlled diet -replete lytes in AM -no standing fluids #Prophylaxis -pradaxa #Disposition -continue to monitor on med surg -DC planning to SNF Visit type - Emergency Visit Emergency Visit: No - New Patient This patient is new to me today: No - Critical Care Critical Care patient: No <Diego Wong - Last Filed: 08/13/17 17:03> Physical Exam: Patient seen and examined agree with the resident's plan. No surgery at this time as per ortho.
[2017-08-13] MEDS: LATANOPROST 0.005% OPHTH SOLN 2.5ML BOTTLE OU SCH (21:24)
--- NOTE | 2017-08-13 22:29 | PN ---
Progress Note (short form) - Note Progress Note: Pt lying comfortably in bed. Notes pain with motion but less so than yesterday Last Vital Signs Temp Pulse Resp BP Pulse Ox 99.2 F 64 20 138/76 98 08/13/17 21:26 08/13/17 21:26 08/13/17 21:26 08/13/17 21:26 08/13/17 21:00 Pelvis exam shows continued pain to compression. Mild discomfort with hip ROM. Calves soft NT NVID. Laboratory Results - last 24 hr 08/13/17 08/13/17 08/13/17 06:15 06:15 06:15 WBC 9.9 RBC 4.29 Hgb 12.5 Hct 37.3 MCV 86.9 MCH 29.1 MCHC 33.5 RDW 15.4 Plt Count 146 MPV 8.9 Sodium 139 Potassium 3.5 Chloride 109 H Carbon Dioxide 21 Anion Gap 9 BUN 17 Creatinine 0.5 L Random Glucose 82 Calcium 7.7 L TSH 0.71 Blood Type B POSITIVE Antibody Screen Negative 08/13/17 08:44 WBC RBC Hgb Hct MCV MCH MCHC RDW Plt Count MPV Sodium Potassium Chloride Carbon Dioxide Anion Gap BUN Creatinine Random Glucose Calcium TSH Blood Type B POSITIVE Antibody Screen a/p stable pelvic fracture -oob/pt -pain control -dvt proph -hct stable -follow up x-rays in 2 weeks
[2017-08-14] MEDS: LEVOTHYROXINE NA 125 MCG TABLET (FP) PO SCH (06:27)
--- NOTE | 2017-08-14 06:54 | PN ---
Physical Exam: SUBJECTIVE: Patient seen and examined at bedside. no acute overnight events. OBJECTIVE: Vital Signs Period Temp Pulse Resp BP Sys/Anderson Pulse Ox Last 24 Hr 97.5 F-99.2 F 62-80 20-20 126-142/70-76 98-98 GEN: A&Ox2, no acute distress Cards: RR, irregular rhythm, no murmurs Pulm: CTA Abd: Soft, nontender, BS present Extremities: mild tenderness to palpation on the R femoral head region. RLE restricted in ROM due to pain. Laboratory Results - last 24 hr 08/13/17 08/13/17 08/13/17 06:15 06:15 06:15 WBC 9.9 RBC 4.29 Hgb 12.5 Hct 37.3 MCV 86.9 MCH 29.1 MCHC 33.5 RDW 15.4 Plt Count 146 MPV 8.9 Sodium 139 Potassium 3.5 Chloride 109 H Carbon Dioxide 21 Anion Gap 9 BUN 17 Creatinine 0.5 L Random Glucose 82 Calcium 7.7 L TSH 0.71 Blood Type B POSITIVE Antibody Screen Negative 08/13/17 08:44 WBC RBC Hgb Hct MCV MCH MCHC RDW Plt Count MPV Sodium Potassium Chloride Carbon Dioxide Anion Gap BUN Creatinine Random Glucose Calcium TSH Blood Type B POSITIVE Antibody Screen Active Medications Generic Name Dose Route Start Last Admin Trade Name Freq PRN Reason Stop Dose Admin Acetaminophen 650 mg 08/13/17 11:01 08/13/17 11:19 Tylenol - PO 650 mg Q6H PRN Administration PAIN Acetazolamide 500 mg 08/12/17 13:15 08/13/17 11:20 Diamox Sequels - PO 500 mg DAILY KENNY Administration Artificial Tears 1 drop 08/13/17 11:41 Artificial Tears OU TID PRN DRY EYES Brimonidine Tartrate 1 drop 08/13/17 10:00 08/13/17 21:24 Alphagan 0.2% - OU 1 drop BID KENNY Administration Dabigatran 75 mg 08/12/17 13:15 08/13/17 21:23 Pradaxa - PO 75 mg BID KENNY Administration Digoxin 0.25 mg 08/12/17 13:15 08/13/17 11:22 Lanoxin - PO 0.25 mg DAILY KENNY Administration Escitalopram Oxalate 20 mg 08/12/17 13:15 08/13/17 11:22 Lexapro - PO 20 mg DAILY KENNY Administration Furosemide 20 mg 08/13/17 10:00 08/13/17 11:19 Lasix - PO 20 mg MoFr@1000 KENNY Administration Latanoprost 1 drop 08/12/17 22:00 08/13/17 21:24 Xalatan 0.005% Eye Drops - OU 1 drop HS KENNY Administration Levothyroxine Sodium 125 mcg 08/12/17 13:15 08/14/17 06:27 Synthroid - PO 125 mcg DAILY@0700 KENNY Administration Metoprolol Succinate 25 mg 08/13/17 10:00 08/13/17 11:19 Toprol Xl - PO 25 mg DAILY KENNY Administration Ramipril 5 mg 08/12/17 13:15 08/13/17 11:20 Altace - PO 5 mg DAILY KENNY Administration ASSESSMENT/PLAN: 86 year old female with a past medical history of HTN, HLD, Afib, hypothyroidism , depression admitted to the hospital s/p fall and acute R sided pubic ramus fracture #Pubic Ramus Fracture: pain is controlled -Patient will not have surgery -Dr. Grijalva consult appreciated -pain control, tylenol 650 PRN -rehab placement #Hypertension: controlled -continue home ramipril 5mg PO daily -continue metoprolol 25mg PO QD -continue home lasix 20mg PO #Hypothyroidism: not acute -continue levothyroxine 125mcg PO QD #Atrial Fibrillation: rate controlled -CBC to trend H&H -continue pradaxa -continue digoxin 0.25 QD #Depression: stable -continue raloxifine #FEN -Sodium controlled diet -replete lytes in AM -no standing fluids #Prophylaxis -pradaxa #Disposition -continue to monitor on med surg -DC planning to SNF Visit type - Emergency Visit Emergency Visit: No - New Patient This patient is new to me today: No - Critical Care Critical Care patient: No
[2017-08-14] MEDS ORDERED: PT OWN MED DRAWER 7, Y5N ONE (09:23)
[2017-08-14] MEDS: metoPROLOL SUCCINATE 25 MG TAB.SR.24H (FP) PO SCH (09:27)
[2017-08-14] MEDS: ESCITALOPRAM OXALATE 20 MG TABLET (FP) PO SCH (09:27)
[2017-08-14] MEDS: DABIGATRAN ETEXILATE MESYLATE 75 MG CAPSULE PO SCH ×2 (09:27→21:56)
[2017-08-14] MEDS: DIGOXIN 0.25 MG TABLET (FP) PO SCH (09:27)
[2017-08-14] MEDS: RAMIPRIL 5 MG CAPSULE (FP) PO SCH (09:27)
[2017-08-14] MEDS: BRIMONIDINE TARTRATE 0.2% OPHTHALMIC 5 ML BOTTLE OU SCH ×2 (09:27→21:57)
[2017-08-14] MEDS: ACETAMINOPHEN 325 MG TABLET (FP) PO PRN (12:15)
[2017-08-14] MEDS: LATANOPROST 0.005% OPHTH SOLN 2.5ML BOTTLE OU SCH (21:57)
[2017-08-15] MEDS: LEVOTHYROXINE NA 125 MCG TABLET (FP) PO SCH (06:09)
[2017-08-15] MEDS: ESCITALOPRAM OXALATE 20 MG TABLET (FP) PO SCH (10:13)
[2017-08-15] MEDS: metoPROLOL SUCCINATE 25 MG TAB.SR.24H (FP) PO SCH (10:13)
[2017-08-15] MEDS: DABIGATRAN ETEXILATE MESYLATE 75 MG CAPSULE PO SCH (10:14)
[2017-08-15] MEDS: DIGOXIN 0.25 MG TABLET (FP) PO SCH (10:14)
[2017-08-15] MEDS: RAMIPRIL 5 MG CAPSULE (FP) PO SCH (10:15)
[2017-08-15] MEDS: BRIMONIDINE TARTRATE 0.2% OPHTHALMIC 5 ML BOTTLE OU SCH (10:16)
[2017-08-15 10:18] VITALS: PULSE 73
--- NOTE | 2017-08-15 11:50 | DS ---
Physical Exam: SUBJECTIVE: Patient seen and examined at bedside. No acute complaints. Pain is controlled. OBJECTIVE: Vital Signs Period Temp Pulse Resp BP Sys/Anderson Pulse Ox Last 24 Hr 97.9 F-99.1 F 66-79 16-20 103-132/50-74 97 PHYSICAL EXAM GEN: A&Ox2, no acute distress Cards: RR, irregular rhythm, no murmurs Pulm: CTA Abd: Soft, nontender, BS present Extremities: mild tenderness to palpation on the R femoral head region. RLE restricted in ROM due to pain. IMAGING: CT HEAD: Moderate atrophy and chronic microvascular ischemic disease changes without evidence of acute intracranial pathology. Correlate clinically to determine further evaluation and follow-up. XR R HIP: Right superior and inferior pubic rami fractures. Correlation recommended. Further imaging with CT pelvic CT may be of help. CT PELVIS: Comminuted there is slightly displaced fracture of the right superior and inferior pubic rami with mild surrounding soft tissue swelling/ contusions. There is also a slightly displaced fracture in the right pedicle of S2 assuming there is a transitional vertebral body at the lumbosacral junction and another minimally displaced fracture in the right sacral wing extending inferiorly involving anterior/inferior aspect of the right sacroiliac joint HOSPITAL COURSE: Date of Admission:08/12/17 86 year old female with a past medical history of HTN, HLD, Afib, hypothyroidism , depression presented to the hospital s/p fall 2 days prior to admission at [facility]. Patient denied loss of consciousness, heart palpitations, chest pain, headache, seizure hx, nausea, vomiting, and incontinence. Her pain was in her R hipat a 5/10 and patient did not want pain medications. Head CT was negative. XR of R hip should R pubic ramus fracture. ortho Dr. grijalva was consulted who recommended obtaining CT. CT pelvis listed above. Plan was supportive and non-surgical. Patient's pain was controlled with tylenol and she was discharged to SNF for rehabilitation with instructions to see the orthopedic surgeon as an outpatient and to see her primary care physician. Date of Discharge: 08/15/17 Minutes to complete discharge: 35 Discharge Summary Reason For Visit: FRACTURE PUBIC RAMUS Condition: Stable - Instructions Diet, Activity, Other Instructions: You were admitted to the hospital for the treatment of a fracture of your right pubic ramus (a part of your hip). Orthopedics saw your fracture and suggested it best not to operate. Your pain was controlled in the hospital only on tylenol. Medical Recommendations: -Continue your home medications as before -You will need to go to acute rehabilitation for help in getting your strength back -Please work with physical therapy -Get an xray of your pelvis in 2 weeks -Make an appointment with the primary care physician this week -Make an appointment with the orthopedic surgeon, Dr. Grijalva, within 1 month of discharge If you experience severe pain, lightheadedness, nausea, vomiting, diarrhea, chest pain or shortness of breath, please return to the emergency room immediately Referrals: Juan Grijalva MD [Staff Physician] - 1 Month Meena Hodge MD [Primary Care Provider] - 1 Week Disposition: [facility] - Home Medications Comprehensive Discharge Medication List: Ambulatory Orders Brimonidine Tartrate [Alphagan 0.2% -] 1 drop OU Q12H 08/12/17 Cyclosporine [Restasis] 1 drop OU BID 08/12/17 Dabigatran Etexilate Mesylate [Pradaxa -] 75 mg PO BID 08/12/17 Digoxin [Lanoxin -] 0.25 mg PO DAILY 08/12/17 Escitalopram Oxalate [Lexapro -] 20 mg PO DAILY 08/12/17 Furosemide 20 mg PO MOFR 08/12/17 Lactose-Reduced Food [Ensure Liquid] 237 ml PO DAILY 08/12/17 Levothyroxine Sodium [Levo-T] 125 mcg PO DAILY 08/12/17 Metoprolol Succinate 25 mg PO DAILY 08/12/17 Raloxifene HCl 60 mg PO DAILY 08/12/17 Ramipril 5 mg PO DAILY 08/12/17 Travoprost [Travatan Z] 1 drop OU HS 08/12/17 acetaZOLAMIDE [Diamox Sequels -] 500 mg PO DAILY 08/12/17 Miscellaneous Medical Supply [Outpatient Order] 1 each ASDIR #1 [facility] [place] This patient is new to me today: No Emergency Visit: No Critical Care patient: No - Discharge Referral Referred to [facility] Med [facility] No
[2017-08-15 12:05] VITALS: BP 110/60; TEMP 98
--- NOTE | 2017-08-15 18:36 | PN ---
Teaching Attending Note Name of Resident: Pedro Melendez ATTENDING PHYSICIAN STATEMENT I saw and evaluated the patient. I reviewed the resident's note and discussed the case with the resident. I agree with the resident's findings and plan as documented. SUBJECTIVE:seen at 9 am no fever or chills. pain in pelvis OBJECTIVE: NAD cv: RRR Lungs: CTAB ext: TTP in R groin. no erythema ASSESSMENT AND PLAN: 86 year old female with a past medical history of HTN, HLD, Afib, hypothyroidism , and depression admitted to the hospital s/p fall and was found to have acute multiple pelvic fx 1- Multiple Acute pelvic Fxs s/p fall no surgical indication - pain control with tylenol - PT 2- hypothyroidism : cont synthroid 3- HTN: cont home meds 4- A fib : cont dig, BB and paradaxa diso : rehab today
== END 2017-08-15 11:17 | DRG 535 ==
LOC: JER 08:32 → JERBED 11:46 → J8W 14:32
PROVIDERS: ADMIT Internal Medicine; ATTEND Internal Medicine
DX: S32.511A Fracture of superior rim of right pubis, initial encounter for closed fracture (principal); E43 Unspecified severe protein-calorie malnutrition; Z68.1 Body mass index [BMI] 19.9 or less, adult; S32.19XA Other fracture of sacrum, initial encounter for closed fracture; I10 Essential (primary) hypertension; E78.5 Hyperlipidemia, unspecified; I48.91 Unspecified atrial fibrillation; F03.90 Unspecified dementia, unspecified severity, without behavioral disturbance, psychotic disturbance, mood disturbance, and anxiety; W18.39XA Other fall on same level, initial encounter; Y93.89 Activity, other specified; Y92.098 Other place in other non-institutional residence as the place of occurrence of the external cause; D72.828 Other elevated white blood cell count
CPT/HCPCS: 36415; 70450-TC; 72192-TC; 73523-TC-FY; 80048; 80053; 80162; 81003; 82550; 84443; 84484; 85025; 85027; 86850; 86900; 86901; 93005; 93010; 97116-GP; 97161-GP; 99285-25